=== PATIENT | female | born 1975 | race Two or more races ===

== ENCOUNTER 2020-05-20 10:16 | Emergency (ER) | payer SELFPAY ==
[~2020-05-20] VITALS: Ht 149.9 cm; Wt 81.6 kg
[~2020-05-20 10:16] MED LIST: PREN-145 OR
[2020-05-20] MEDS ORDERED: KETOROLAC TROMETH 30 MG/ML 1ML VIAL IV ONE (11:15)
[2020-05-20] MEDS ORDERED: SODIUM CHLORIDE 0.9% 1,000 ML IVB ONE (11:15)
[2020-05-20] MEDS ORDERED: ONDANSETRON HCL 4 MG/2 ML VIAL IV ONE (11:15)
[2020-05-20 11:54] LABS: Basophils # (auto) 0.1 10 ^3/uL (0-0.2); Basophils % (auto) 0.6 % (0.0-2.0); Eosinophils # (auto) 0 10 ^3/uL (0-0.8); Eosinophils % (auto) 0.1 % (0.0-7.0); Hematocrit 40.3 % (36.0-46.0); Hemoglobin 13.6 g/dL (12.2-16.2); Lymphocytes # (auto) 1.3 10 ^3/uL (0.4-5.4); Lymphocytes % (auto) 10.9 % (10.0-50.0); Mean Corpuscular Hemoglobin 30.5 pg (28.0-32.0); Mean Corpuscular Hgb Conc. 33.7 g/dL (32.0-36.0); Mean Corpuscular Volume 90.4 fL (80.0-100.0); Monocytes # (auto) 0.6 10 ^3/uL (0-1.3); Monocytes % (auto) 4.6 % (0.0-12.0); Neutrophils # (auto) 10.3 10 ^3/uL (1.6-8.6); Neutrophils % (auto) 83.8 % (37.0-80.0); Platelet Count (auto) 328 10^3/uL (140-450); Red Blood Cells 4.46 10^6/uL (4.0-5.20); Red Cell Distribution Width 14.8 % (11.8-14.3); White Blood Cell 12.3 10^3/uL (4.4-10.8)
[2020-05-20 12:22] LABS: Potassium 3.8 mmol/L (3.5-5.1); Sodium 136 mmol/L (136-145)
[2020-05-20 12:33] LABS: Alanine Aminotransferase 27 U/L (13-56); Alkaline Phosphatase 116 U/L (45-117); Amylase 40 U/L (25-115); Aspartate Aminotransferase 13 U/L (15-37); BUN/Creatinine Ratio 16.7; Bilirubin, Total 0.4 mg/dL (0.2-1.0); Blood Urea Nitrogen 13 mg/dL (7-18); Carbon Dioxide 24 mmol/L (21-32); GFR African American 103 mL/min; GFR Non-African American 85 mL/min; Lipase < 10 U/L (73-393); Total Protein 8.4 g/dL (6.4-8.2)
[2020-05-20 12:37] LABS: Calcium 9.1 mg/dL (8.5-10.1); Glucose 114 mg/dL (74-106)
[2020-05-20 16:57] LABS: Anion Gap 6 (5-15); Chloride 106 mmol/L (98-107)
[2020-05-21] VITALS: BP 119/56
== END 2020-05-20 18:49 | disposition home or self-care (01) ==
LOC: ER 10:16
DX: N20.9 Urinary calculus, unspecified (principal)
CPT/HCPCS: 36415; 74176; 80053; 81025; 82150; 83690; 85025